=== PATIENT | female | born 1995 | race Hispanic/Latino ===

== ENCOUNTER 2018-05-30 15:14 | Observation (INO) | payer MEDICAID ==
[~2018-05-30] VITALS: Ht 151.1 cm; Wt 46.7 kg
[2018-05-30] MEDS ORDERED: ACET-2900 PO (16:20)
[2018-05-30 16:53] LABS: HEMATOCRIT 31.4 % (36-48); MEAN CORPUSCULAR HGB CONC 33.9 g/dL (32.0-36.0); MEAN CORPUSCULAR VOLUME 97.3 fL (80-100); PLATELET COUNT (AUTO) 227 K/uL (130-400); RED BLOOD CELL COUNT(AUTO) 3.23 MIL/uL (4.00-5.50); RED CELL DISTRIBUTION WIDTH 13.8 % (11.0-15.5); WHITE BLOOD COUNT (AUTO) 7.4 K/uL (4.8-10.8)
[2018-05-30 17:06] LABS: CREATININE 0.4 mg/dL (0.5-1.5); POTASSIUM 3.4 mmol/L (3.5-5.1)
[2018-05-30 17:23] VITALS: BP 116/50
[2018-05-30 17:32] LABS: BAND NEUTROPHILS % (MANUAL) 4 % (0-2); LYMPHOCYTES % (MANUAL) 3 % (22-44); MAN.DIFF COMMENT-IMPRESSION MANUAL DIF; MONOCYTES % (MANUAL) 4 % (2-9); PLATELET MORPHOLOGY COMMENT ADEQUATE; SEGMENTED NEUTROPHILS % 89 % (40-70)
[2018-05-30] MEDS: OSELTAMIVIR PHOSPHATE 75 MG CAP PO SCH (18:16)
[2018-05-30] MEDS: ACETAMINOPHEN 325 MG TAB PO PRN ×2 (18:16→23:15)
[2018-05-30] MEDS ORDERED: GUAI237L82 PO (18:33)
[2018-05-30 19:52] LABS: APPEARANCE,URINE CLEAR (CLEAR); BILIRUBIN,URINE NEGATIVE (NEGATIVE); COLOR,URINE YELLOW (YELLOW); GLUCOSE, URINE (UA) NEGATIVE (NEGATIVE); KETONES,URINE >=80 mg/dL (NEGATIVE); LEUKOCYTE ESTERASE ,URINE NEGATIVE (NEGATIVE); NITRATE,URINE NEGATIVE (NEGATIVE); OCCULT BLOOD,URINE TRACE-INTACT (NEGATIVE); PROTEIN,URINE NEGATIVE (NEGATIVE); UROBILINOGEN,URINE 0.2 mg/dL (0.2-1.0)
[2018-05-30 20:00] LABS: BACTERIA,URINE Few /HPF (None Seen); RBC,URINE 0-1 /HPF (0-1); SQUAMOUS EPITHELIAL CELL,UR 0-2 /HPF (0-2); WBC,URINE 0-1 /HPF (0-1)
[2018-05-30 20:14] VITALS: BP 102/51
[2018-05-30] MEDS ORDERED: ONDANSETRON HCL MDV 20ML 2 MG/ML VIAL IVP PRN (21:15)
[2018-05-30] MEDS ORDERED: ONDANSETRON HCL 4 MG/2 ML VIAL ONE (22:29)
[2018-05-30] MEDS: LACTATED RINGERS 1000ML 1,000 ML IV SCH (22:37)
[2018-05-30 23:28] VITALS: BP 107/60
[2018-05-31 03:40] VITALS: BP 92/44
[2018-05-31] MEDS: LACTATED RINGERS 1000ML 1,000 ML IV SCH (07:16)
[2018-05-31] MEDS: OSELTAMIVIR PHOSPHATE 75 MG CAP PO SCH (07:21)
[2018-05-31] MEDS: ACETAMINOPHEN 325 MG TAB PO PRN ×2 (07:23→12:57)
[2018-05-31 07:59] VITALS: BP 95/44
[2018-05-31 11:20] VITALS: BP 99/65
== END 2018-05-31 13:50 | disposition home or self-care (01) ==
LOC: EDH 15:14 → INTOOBSV 15:15 → OBSVTOIN 15:15 → LDH 15:15 → WSH 17:20
PROVIDERS: ADMIT Obstetrics & Gynecology; ATTEND Obstetrics & Gynecology
DX: O36.8120 Decreased fetal movements, second trimester, not applicable or unspecified (principal); J09.X2 Influenza due to identified novel influenza A virus with other respiratory manifestations; O26.892 Other specified pregnancy related conditions, second trimester; R05 Cough; R51 Headache; Z3A.23 23 weeks gestation of pregnancy
CPT/HCPCS: 36415; 80048; 81001; 85025; 87804; 96360; 96361; 96374; G0378; J2405; J7120